=== PATIENT | male | born 1960 | race Caucasian/White ===

== ENCOUNTER → 2024-06-07 | Outpatient (CLI) | payer OTHER, SELFPAY ==
--- NOTE | 2024-06-07 | XR_ITS ---
Examination: Shoulder,left, 3 views Technique: Shoulder AP internal rotation, AP external rotation, Y view shoulder, 3 views Exam date and time :June 07, 2024 1228 hours INDICATIONS: Patient fell February 2024 with injury to the shoulder, shoulder pain. FINDINGS: Significant osteopenia Moderate narrowing glenohumeral joint No fracture or shoulder dislocation Mild osteophytosis acromioclavicular joint IMPRESSION: Moderate narrowing glenohumeral joint
== END | disposition home or self-care (01) ==
PROVIDERS: PCP Family Medicine; Referring Provider Orthopaedic Surgery; Visit Provider Family Medicine
DX: M25.812 Other specified joint disorders, left shoulder (principal); S49.92XS Unspecified injury of left shoulder and upper arm, sequela; W19.XXXS Unspecified fall, sequela
CPT/HCPCS: 73030